=== PATIENT | male | born 1950 ===

== ENCOUNTER 2017-03-25 09:41 | Emergency (ER) | payer MEDICARE, BC ==
[2017-03-25 09:55] VITALS: BMI 34.3
[2017-03-25 10:12] VITALS: TEMP 97.8
[2017-03-25 10:40] LABS: BASO # 0.04 K/mm3 (0.0-2.0); BASO % 0.3 % (0.0-3.0); EOS # 0.1 (0.0-0.7); EOS % 0.8 % (1.5-5.0); GRAN # 8.03 (1.4-6.5); GRAN % 68.2 % (50.0-68.0); HEMOGLOBIN 16.1 g/dL (14.0-18.0); LYMPH # 2.7 (1.2-3.4); LYMPH % 22.6 % (22.0-35.0); MEAN CELL VOLUME 87.8 fl (80.0-105.0); MEAN CORPUSCULAR HEMOGLOBIN 31.1 pg (25.0-35.0); MEAN CORPUSCULAR HGB CONC 35.4 g/dl (31.0-37.0); MEAN PLATELET VOLUME 12.4 fl (7.0-11.0); MONO % 8.1 % (1.0-6.0); RBC 5.18 10^6/uL (3.5-6.1); RED CELL DISTRIBUTION WIDTH 12.6 % (11.5-14.5); WHITE BLOOD COUNT 11.8 10^3/ul (4.5-11.0)
[2017-03-25 10:43] LABS: URINE BILIRUBIN NEGATIVE (NEGATIVE); URINE BLOOD NEGATIVE (NEGATIVE); URINE GLUCOSE (UA) 250 mg/dL (NEGATIVE); URINE LEUKOCYTE ESTERASE NEGATIVE Leu/uL (NEGATIVE); URINE NITRATE NEGATIVE (NEGATIVE); URINE PROTEIN NEGATIVE mg/dL (<30 mg/dL); URINE UROBILINOGEN 0.2 E.U./dL (<1 E.U./dL)
[2017-03-25] MEDS ORDERED: Barium Sulfate Susp 2.1% w/v, 2.0% w/w 450 mL Bottle PO ONE (10:45)
[2017-03-25 10:54] LABS: URINE APPEARANCE CLEAR (CLEAR); URINE COLOR YELLOW (YELLOW)
[2017-03-25 11:02] LABS: ALB/GLOB RATIO 1.4 (1.1-1.8); ALBUMIN 4.8 g/dL (3.0-4.8); ALT/SGPT 84 U/L (7-56); AMYLASE 58 U/L (35-125); AST/SGOT 43 U/L (17-59); BLOOD UREA NITROGEN 17 mg/dL (7-21); CALCIUM 9.9 mg/dL (8.4-10.5); GFR AFRICAN-AMERICAN > 60; GFR NON-AFRICAN AMERICAN > 60; INR 1.03 (0.93-1.08); LIPASE 52 U/L (23-300); PARTIAL THROMBOPLASTIN TIME 29.7 Seconds (25.1-36.5); PROTHROMBIN TIME 11.9 SECONDS (9.4-12.5)
[2017-03-25 11:12] LABS: TROPONIN I < 0.01 ng/mL
[2017-03-25 13:41] VITALS: BP 128/75; PULSE 65; RESP 18; O2SAT 98
--- NOTE | 2017-03-25 14:35 | ED PDOC ---
Arrival/HPI - General Chief Complaint: Abdominal Pain Time Seen by Provider: 03/25/17 09:57 Historian: Patient - History of Present Illness Narrative History of Present Illness (Text): 03/25/17 15:33 66yo male with PMHx of hypertension and hypercholestrol who present with complainant of right sided mid abdominal pain since last night. Admits to nausea. Describes pain as "queasiness". denies vomiting, diarrhea, constipation , fever, chills, chest pain, urinary symptoms. Past Medical History - Provider Review Nursing Documentation Reviewed: Yes - Infectious Disease Hx of Infectious Diseases: None - Tetanus Immunization Tetanus Immunization: Unknown - Cardiac Hx Cardiac Disorders: Yes Other/Comment: aortic any. 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 - Renal Hx Renal Disorder: No - Endocrine/Metabolic Hx Endocrine Disorders: No - Hematological/Oncological Hx Blood Disorders: Yes Hx Blood Transfusions: Yes Hx Blood Transfusion Reaction: No - Integumentary Hx Dermatological Disorder: No - Musculoskeletal/Rheumatological Hx Musculoskeletal Disorders: No Hx Falls: No - Gastrointestinal Hx Gastrointestinal Disorders: Yes Hx Gall Bladder Disease: Yes (CHOLECYSTECTOMY) - Genitourinary/Gynecological Hx Genitourinary Disorders: No - Psychiatric Hx Psychophysiologic Disorder: No Hx Substance Use: No - Surgical History Hx Cardiac Catheterization: Yes Hx Cholecystectomy: Yes Hx Coronary Stent: Yes (x1) - Anesthesia Hx Anesthesia: Yes Hx Anesthesia Reactions: No Hx Malignant Hyperthermia: No - Suicidal Assessment Feels Threatened In Home Enviroment: No Family/Social History - Physician Review Nursing Documentation Reviewed: Yes Family/Social History: Unknown Family HX Smoking Status: Former Smoker Hx Alcohol Use: Yes (SOCIALLY) Frequency of alcohol use: Socially Hx Substance Use: No Hx Substance Use Treatment: No Allergies/Home Meds Allergies/Adverse Reactions: Allergies ct scan dye Allergy (Uncoded 03/25/17 10:12) RASH Home Medications: Home Meds Medication Instructions Recorded Confirmed Tiotropium R[place]on Inhaler 1 inh INH DAILY PRN 08/29/13 03/25/17 [Spiriva Inhalation Handihaler Device] Albuterol HFA [Ventolin HFA 90 0.09 mg IH PRN PRN 08/15/14 03/25/17 mcg/actuation (8 g)] Aspirin [Aspirin Chewable] 2 tab PO DAILY 09/14/15 03/25/17 Atorvastatin [Lipitor] 1 tab PO DAILY 09/14/15 03/25/17 Review of Systems - Physician Review All systems were reviewed & negative as marked: Yes - Review of Systems Constitutional: Normal Eyes: Normal ENT: Normal Respiratory: Normal Cardiovascular: Normal Gastrointestinal: Abdominal Pain. absent: Constipation, Diarrhea, Nausea, Vomiting, Hematochezia, Hematemesis Genitourinary Male: Normal Musculoskeletal: Normal Skin: Normal Neurological: Normal Endocrine: Normal Hemo/Lymphatic: Normal Psychiatric: Normal Physical Exam Vital Signs Reviewed: Yes Vital Signs Temp Pulse Resp BP Pulse Ox 03/25/17 13:40 65 18 128/75 98 03/25/17 10:09 97.8 F 62 17 130/83 97 Temperature: Afebrile Blood Pressure: Normal Pulse: Regular Respiratory Rate: Normal Appearance: Positive for: Well-Appearing, Non-Toxic, Comfortable Pain Distress: None Mental Status: Positive for: Alert and Oriented X 3 - Systems Exam Head: Present: Atraumatic, Normocephalic Pupils: Present: PERRL Extroacular Muscles: Present: EOMI Conjunctiva: Present: Normal Mouth: Present: Moist Mucous Membranes Neck: Present: Normal Range of Motion Respiratory/Chest: Present: Clear to Auscultation, Good Air Exchange. No: Respiratory Distress, Accessory Muscle Use Cardiovascular: Present: Regular Rate and Rhythm, Normal S1, S2. No: Murmurs Abdomen: Present: Normal Bowel Sounds, Other (Soft). No: Tenderness, Distention , Peritoneal Signs, Rebound, Guarding, McBurney's Point Tender, Rovsing's Sign Present Back: Present: Normal Inspection Upper Extremity: Present: Normal Inspection. No: Cyanosis, Edema Lower Extremity: Present: Normal Inspection. No: Edema Neurological: Present: GCS=15, CN II-XII Intact, Speech Normal Skin: Present: Warm, Dry, Normal Color. No: Rashes Psychiatric: Present: Alert, Oriented x 3, Normal Insight, Normal Concentration Medical Decision Making ED Course and Treatment: 03/25/17 19:59 Pt presented for stated history. He was comfortable in ED. He declined morphine , notes that pain is mild. Lab was unremarkable EKG Sinus yael @59bpm Abdominal/Pelvic CT IMPRESSION: No definite acute findings are seen in this abdomen and pelvis CT without contrast. No bowel urinary tract obstruction, free intraperitoneal gas or mesenteric edema is encountered. No ascites is identified at this time either. Hepatic steatosis. Potential cirrhotic liver pattern. Clinically correlate further. Left renal cyst. Enlarged prostate gland. Result was DW the pt. Dr. Arnett's officve was called, but Dr. Patel was covering. Pt was stronlgy advised to f/u with Dr. Rodriguez. He is eating and drinking well. He is stable for DC and will need further outpt evaluation. - Lab Interpretations Lab Results: 03/25/17 10:10 03/25/17 10:10 Lab Results 03/25/17 10:50: Lactic Acid 1.1 03/25/17 10:26: Urine Color Yellow, Urine Appearance Clear, Urine pH 6.0, Ur Specific Davenport 1.010, Urine Protein Negative, Urine Glucose (UA) 250 H, Urine Ketones Negative, Urine Blood Negative, Urine Nitrate Negative, Urine Bilirubin Negative, Urine Urobilinogen 0.2, Ur Leukocyte Esterase Negative 03/25/17 10:10: Sodium 140, Potassium 4.2, Chloride 104, Carbon Dioxide 22, Anion Gap 17, BUN 17, Creatinine 0.9, Est GFR ( Amer) > 60, Est GFR (Non- Af Amer) > 60, Random Glucose 162 H, Calcium 9.9, Total Bilirubin 2.4 H, AST 43 , ALT 84 H, Alkaline Phosphatase 92, Lactate Dehydrogenase 454, Total Creatine Kinase 96, Troponin I < 0.01, Total Protein 8.2, Albumin 4.8, Globulin 3.4, Albumin/Globulin Ratio 1.4, Amylase 58, Lipase 52 03/25/17 10:10: PT 11.9, INR 1.03, APTT 29.7 03/25/17 10:10: WBC 11.8 H D, RBC 5.18, Hgb 16.1, Hct 45.5, MCV 87.8, MCH 31.1, MCHC 35.4, RDW 12.6, Plt Count 188, MPV 12.4 H, Gran % 68.2 H, Lymph % (Auto) 22.6, Frederick % (Auto) 8.1 H, Eos % (Auto) 0.8 L, Baso % (Auto) 0.3, Gran # 8.03 H , Lymph # 2.7, Frederick # 1.0 H, Eos # 0.1, Baso # 0.04 - RAD Interpretation Radiology Orders: 03/25/17 10:33 ABD & PELVIS PO CONTRAST ONLY [CT] Stat - Medication Orders Current Medication Orders: Discontinued Medications Acetaminophen (Tylenol 325mg Tab) 975 mg PO STAT STA Stop: 03/25/17 15:35 Last Admin: 03/25/17 15:35 Dose: 975 mg MAR Pain/Vitals Document 03/25/17 15:35 SE (Rec: 03/25/17 15:35 SE [id number]) Pain Reassessment Is This A Pain ReAssessment? No Sleep Is patient sleeping during reassessment? No Presence of Pain Presence of Pain Yes Pain Scale Used Pain Scale Used Numeric Famotidine (Pepcid) 20 mg IVP STAT STA Stop: 03/25/17 09:58 Last Admin: 03/25/17 10:27 Dose: 20 mg IVP Administration Document 03/25/17 10:27 SE (Rec: 03/25/17 10:27 SE [id number]) Charges for Administration # of IVP Administrations 1 Morphine Sulfate (Morphine) 2 mg IVP STAT STA Stop: 03/25/17 15:26 Last Admin: 03/25/17 15:34 Dose: Ondansetron HCl (Zofran Inj) 4 mg IVP STAT STA Stop: 03/25/17 09:58 Last Admin: 03/25/17 10:26 Dose: 4 mg IVP Administration Document 03/25/17 10:26 SE (Rec: 03/25/17 10:27 SE [id number]) Charges for Administration # of IVP Administrations 1 Disposition/Present on Arrival - Present on Arrival Any Indicators Present on Arrival: No History of DVT/PE: No History of Uncontrolled Diabetes: No Urinary Catheter: No History of Decub. Ulcer: No History Surgical Site Infection Following: None - Disposition Have Diagnosis and Disposition been Completed?: Yes Diagnosis: Abdominal pain Disposition: HOME/ ROUTINE Disposition Time: 15:35 Patient Plan: Discharge Condition: STABLE Discharge Instructions (ExitCare): Abdominal Pain (ED) Additional Instructions: follow up with your doctor Return to ED for any new or worsening symptoms Prescriptions: Ondansetron ODT [Zofran ODT] 4 mg PO Q6 #7 odt Referrals: Kehinde Staley MD [Primary Care Provider] - Follow up with primary Forms: [employer] (Persian)
--- NOTE | 2017-03-25 15:10 | CT ---
PROCEDURE: CT Abdomen and Pelvis with contrast HISTORY: abdominal pain COMPARISON: Abdomen pelvis CT without contrast 08/16/2014. TECHNIQUE: Helical CT of the abdomen and pelvis was performed following oral contrast administration. Intravenous contrast was not administered as per referring physician request. Contrast dose: None Radiation dose: Total exam DLP = 666.87 mGy-cm. This CT exam was performed using one or more of the following dose reduction techniques: Automated exposure control, adjustment of the mA and/or kV according to patient size, and/or use of iterative reconstruction technique. FINDINGS: LOWER THORAX: A benign 5 mm nodule seen at the left lower lobe in image 24 series 5 likely now representing calcified granuloma as compared to prior CT 08/16/2014. Resolution of prior small bilateral pleural effusions and airspace disease at the bilateral bases as well as trace pericardial effusion. LIVER: Hepatic steatosis is again appreciated with underlying sclerosis not completely excluded. Nodular changes seen at the inferior anterior margins of the liver in the interval. GALLBLADDER AND BILE DUCTS: Unremarkable. PANCREAS: Unremarkable. No gross lesion or ductal dilatation. SPLEEN: Unremarkable. ADRENALS: Unremarkable. No mass. KIDNEYS AND URETERS: A small cyst is seen related to the upper midpole left kidney laterally and nonspecific streaky perinephric changes are again seen bilaterally. No radiodense urolithiasis or obstructive uropathy is evident grossly bilaterally. VASCULATURE: Unremarkable. No aortic aneurysm. BOWEL: Moderate fecal loading is seen throughout the colon borderline for constipation. No obstruction. No gross mural thickening. APPENDIX: Normal appendix. PERITONEUM: Unremarkable. No free fluid. No free air. LYMPH NODES: Unremarkable. No enlarged lymph nodes. BLADDER: Unremarkable. REPRODUCTIVE: Enlarged prostate gland again evident. BONES: No acute fracture. OTHER FINDINGS: None. IMPRESSION: No definite acute findings are seen in this abdomen and pelvis CT without contrast. No bowel urinary tract obstruction, free intraperitoneal gas or mesenteric edema is encountered. No ascites is identified at this time either. Hepatic steatosis. Potential cirrhotic liver pattern. Clinically correlate further. Left renal cyst. Enlarged prostate gland.
[2017-03-25] MEDS ORDERED: Morphine 2 mg/ml ISec IVP STA (15:25)
--- NOTE | 2017-03-26 12:33 | CARD ---
APPROVED REPORT EKG Measurement Heart [id number] <Conclusion> Sinus bradycardia Left axis deviation Abnormal ECG
== END 2017-03-25 15:50 | disposition home or self-care (01) ==
LOC: ED 09:41
DX: R10.9 Unspecified abdominal pain (principal); I10 Essential (primary) hypertension; E78.00 Pure hypercholesterolemia, unspecified; Z90.49 Acquired absence of other specified parts of digestive tract; Z87.891 Personal history of nicotine dependence
CPT/HCPCS: 74176; 80053; 81003; 82150; 82550; 83605; 83615; 83690; 84484; 85025; 85610; 85730; 87040; 93005; 96374; 96375; 99284; J2405

== ENCOUNTER 2018-04-23 09:32 | Outpatient (CLI) | payer MEDICARE, BC | END 2018-04-23 09:33 | disposition home or self-care (01) | LOC: RAD 09:32 ==